=== PATIENT | male | born 1970 | race Caucasian/White ===

== ENCOUNTER 2017-01-29 00:47 | Emergency (ER) | payer OTHER ==
[2017-01-29] MEDS ORDERED: Tetan/Diph/Pertus SYR(Tdap)* 0.5 ML SYR(BOOSTRIX) use SYR IM ONE (02:25)
[2017-01-29] MEDS ORDERED: oxyCODONE/Acetamin 5/325 MG* TAB PO ONE (04:22)
[2017-01-29 04:39] VITALS: BP 138/92
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
== END 2017-01-29 04:39 | disposition home or self-care (01) ==
LOC: ED 00:47
DX: S05.11XA Contusion of eyeball and orbital tissues, right eye, initial encounter (principal); Y09 Assault by unspecified means; Y93.9 Activity, unspecified; Y92.9 Unspecified place or not applicable
CPT/HCPCS: 70450; 70486; 90471; 90715; 99282; A9270-GY

== ENCOUNTER 2018-08-13 15:06 | Observation (INO) | payer OTHER ==
[2018-08-13] MEDS ORDERED: NS 0.9% 1000 ML** 1,000 ML IV ONE (17:50)
--- NOTE | 2018-08-13 17:58 | ED ---
Influenza-Like Illness - HPI Summary HPI Summary: The patient is a 48 y/o M presenting to [facility] with a chief complaint of elevated flu-like symptoms due to positive dx of flu, but he also has eleavted D -dimer as provided by Mary Park NP at the [facility] who told him to come to the ED. he is currently complaining of fever, headache, chest congestion, and cough that causes chest tenderness. He denies CP and SOB. Hx of HTN, DM, and HLD. No surgeries. Former smoker (quit in 2013), occasional EtOH, no substances. No long trips recently. - History of Current Complaint Chief Complaint: EDGeneral Time Seen by Provider: 08/13/18 17:23 Hx Obtained From: Patient Onset/Duration: Lasting Hours, Still Present Severity: Moderate Associated Signs & Symptoms: Fever, Cough, Headache Related Hx: Possible Flu/Infectious Exposure - positive flu test per PCP today - Allergy/Home Medications Allergies/Adverse Reactions: Allergies Allergy/AdvReac Type Severity Reaction Status Date / Time No Known Allergies Allergy Verified 01/29/17 00:54 Home Medications: Home Medications Allopurinol 100 mg PO DAILY 08/13/18 [History Confirmed 08/13/18] Atorvastatin* [Lipitor*] 80 mg PO DAILY 08/13/18 [History Confirmed 08/13/18] Cyclobenzaprine TAB* [Flexeril 10 MG TAB*] 10 mg PO BEDTIME PRN 08/13/18 [ History Confirmed 08/13/18] Lisinopril 40 mg PO DAILY 08/13/18 [History Confirmed 08/13/18] Loratadine 10 mg PO BEDTIME 08/13/18 [History Confirmed 08/13/18] Metoprolol Succinate XL TAB* [Toprol XL TAB*] 75 mg PO DAILY 08/13/18 [History Confirmed 08/13/18] Multivitamin [Once Daily] 1 each PO DAILY 08/13/18 [History Confirmed 08/13/18] Omeprazole 20 mg PO DAILY 08/13/18 [History Confirmed 08/13/18] Potassium Citrate [Urocit-K] 1 tab PO DAILY 08/13/18 [History Confirmed 08/13/18 ] amLODIPine TAB* [Norvasc 5 mg TAB*] 10 mg PO DAILY 08/13/18 [History Confirmed 08/13/18] glipiZIDE [Glipizide] 5 mg PO BID 08/13/18 [History Confirmed 08/13/18] metFORMIN* [Glucophage 850 MG TAB *] 850 mg PO 0800,1700 08/13/18 [History Confirmed 08/13/18] PMH/Surg Hx/FS Hx/Imm Hx Endocrine/Hematology History: Reports: Hx Diabetes Cardiovascular History: Reports: Hx Hypercholesterolemia, Hx Hypertension Sensory History: Denies: Hx Deafness Opthamlomology History: Reports: Hx Contacts or Glasses Denies: Hx Legally Blind EENT History: Denies: Hx Deafness - Surgical History Surgery Procedure, Year, and Place: none Infectious Disease History: No Infectious Disease History: Denies: Traveled Outside the [place] in Last 30 Days - Family History Known Family History: Positive: Hypertension, Diabetes - Social History Alcohol Use: Occasionally Substance Use Type: Reports: None Hx Tobacco Use: Yes Smoking Status (MU): Former Smoker Type: Cigarettes - quit in Review of Systems Positive: Fever Positive: Other - chest congestion. Negative: Chest Pain Positive: Cough. Negative: Shortness Of Breath Positive: Headache All Other Systems Reviewed And Are Negative: Yes Physical Exam - Summary Physical Exam Summary: VITAL SIGNS: Reviewed. Tachycardic. GENERAL: Patient is a well-developed and nourished male who is lying comfortable in the stretcher. Patient is not in any acute respiratory distress. HEAD AND FACE: No signs of trauma. No ecchymosis, hematomas or skull depressions. No sinus tenderness. EYES: PERRLA, EOMI x 2, No injected conjunctiva, no nystagmus. EARS: Hearing grossly intact. Ear canals and tympanic membranes are within normal limits. MOUTH: Oropharynx within normal limits. NECK: Supple, trachea is midline, no adenopathy, no JVD, no carotid bruit, no c- spine tenderness, neck with full ROM. CHEST: Symmetric, no tenderness at palpation LUNGS: Clear to auscultation bilaterally. No wheezing or crackles. CVS: Tachycardia with regular rhythm, S1 and S2 present, no murmurs or gallops appreciated. ABDOMEN: Soft, non-tender. No signs of distention. No rebound no guarding, and no masses palpated. Bowel sounds are normal. EXTREMITIES: FROM in all major joints, no edema, no cyanosis or clubbing. NEURO: Alert and oriented x 3. No acute neurological deficits. Speech is normal and follows commands. SKIN: Dry and warm Triage Information Reviewed: Yes Vital Signs On Initial Exam: Initial Vitals Temp Pulse Resp BP Pulse Ox 99.2 F 115 18 127/83 94 08/13/18 15:33 08/13/18 15:33 08/13/18 15:33 08/13/18 15:33 08/13/18 15:33 Vital Signs Reviewed: Yes Diagnostics - Vital Signs Vital Signs Temp Pulse Resp BP Pulse Ox 08/13/18 17:20 111 29 124/61 98 08/13/18 17:16 115 96 08/13/18 15:33 99.2 F 115 18 127/83 94 - Laboratory Result Diagrams: 08/13/18 18:14 08/13/18 18:14 Lab Statement: Any lab studies that have been ordered have been reviewed, and results considered in the medical decision making process. - Radiology CXR Radiology Interpretation Completed By: Radiologist Summary of Radiographic Findings: No acute process. ED physician has reviewed this report. - CT Chest/Thorax CTA CT Interpretation Completed By: Radiologist Summary of CT Findings: 1. There is minimal bibasilar atelectatic change or scarring. The lungs and pleural spaces are otherwise clear. 2. There is mild wall thickening in the distal esophagus, cannot exclude mild esophagitis. 3. No aortic dissection. 4. No obvious acute pulmonary embolism but there is very suboptimal IV contrast opacification of the pulmonary arteries and therefore emboli could be missed. ED physician has reviewed this report. - EKG 18:35 Cardiac Rate: Tachycardia - 109 BPM EKG Rhythm: Sinus Tachycardia EKG Comparison: Other - No prior EKG. Summary of EKG Findings: No ST elevations. Re-Evaluation - Re-Evaluation First Eval Re-Evaluation Time: 21:00 Change: Unchanged Comment: I discussed with the patient the lab and imaging results. Given findings, we talked about admission. He agrees with this plan. Flu Symptom Course/Dx - Course Assessment/Plan: This patient is a 40-year-old male who presents to the emergency department with chief complaint of having shortness of breath, influenza and an elevated d-dimer which is normal per the primary care physician. Therefore they recommended to rule out pulmonary embolism. Patient has no history of recent traveling or sedentary life. In the ED the patient is febrile, tachycardic, and dehydrated. Test results without any significant abnormality except for glucose of 101, lactic acid of 2.4, increased LFTs, CRP of 52.4. In the ED course, patient was given about 2 L of fluids, Tylenol for the fever, however the patient is tachycardic. I believe that the patient is taking more fluids. Chest x-ray shows no acute pathology. CTA IMPRESSION: 1. There is minimal bibasilar atelectatic change or scarring. The lungs and pleural spaces are otherwise clear. 2. There is mild wall thickening in the distal esophagus, cannot exclude mild esophagitis. 3. No aortic dissection. 4. No obvious acute pulmonary embolism but there is very suboptimal IV contrast opacification of the pulmonary arteries and therefore emboli could be missed. The patient continues to be slightly tachycardic. Therefore, I discuss my physical exam, findings and test results with Dr. Jiang from the hospitalist services and he agrees to admit patient to his services. Patient is hemodynamically stable alert and oriented x 3. - Diagnoses Differential Diagnosis/HQI/PQRI: Positive: Bronchitis, Broncholiolitis, Influenza, Pneumonia, Upper Respiratory Infection Provider Diagnoses: Influenza A, Tachycardia, Dehydration - Physician Notifications Discussed Care Of Patient With: Celia Jiang - hospitalist Time Discussed With Above Provider: 21:15 Instructed by Provider To: Other - I consulted with Dr. Jiang, who accepts the patient for admission given results. Discharge - Sign-Out/Discharge Documenting (check all that apply): Patient Departure - Patient will be admitted to [facility] for further care. Patient Received Moderate/Deep Sedation with Procedure: No - Discharge Plan Condition: Stable Disposition: ADMITTED TO [facility] Referrals: Mary Park [Primary Care Provider] - - Billing Disposition and Condition Condition: STABLE Disposition: Admitted to [facility] - Attestation Statements Document Initiated by Scribe: Yes Documenting Scribe: Claudia Mitchell Provider For Whom Adonay is Documenting (Include Credential): Dr. Braden Pringle MD Scribe Attestation: Claudia Gandhi, scribed for Dr. Braden Pringle MD on 08/13/18 at 2116. Scribe Documentation Reviewed: Yes Provider Attestation: The documentation as recorded by the Claudia shrestha accurately reflects the service I personally performed and the decisions made by me, Dr. Braden Pringle MD Status of Scribe Document: Ready
[2018-08-13] MEDS ORDERED: Acetaminophen TAB* 325 MG PO ONE (18:41)
[2018-08-13 18:47] LABS: ABS Basophils 0 10^3/ul (0-0.2); ABS Eosinophils 0.1 10^3/ul (0-0.6); ABS Lymphocytes 0.4 10^3/ul (1.0-4.8); ABS Monocytes 0.7 10^3/ul (0-0.8); ABS Neutrophils 5.5 10^3/ul (1.5-7.7); ABS Nucleated RBC 0 10^3/ul; Albumin 4.8 g/dL (3.2-5.2); Albumin/Globulin Ratio 1.6 (1-3); BUN/Creatinine Ratio 10.9 (8-20); C Reactive Protein 52.49 mg/L (<8.01); Calcium 9.4 mg/dL (8.6-10.3); EGFR African American 106.2 (>60); EGFR Non-African American 87.8 (>60); Eosinophil % 0.9 %; Hematocrit 42 % (36-46); Hemoglobin 14.2 g/dL (14.0-18.0); Lymphocyte % 5.3 %; Mean Corpuscular HGB Conc 34 g/dL (31-36); Mean Corpuscular Hemoglobin 29 pg (27-31); Mean Corpuscular Volume 85 fL (80-94); Mean Platelet Volume 8.2 fL (7.4-10.4); Nucleated Red Blood Cells % 0.1; Platelet Count 137 10^3/uL (150-450); Potassium 4.1 mmol/L (3.5-5.0); Red Blood Count 4.98 10^6 /uL (4.18-5.48); Red Cell Distribution Width 14 % (10.5-15); Total Bilirubin 0.5 mg/dL (0.2-1.0); Total Protein 7.8 g/dL (6.4-8.9); White Blood Count 6.7 10^3/uL (3.5-10.8)
[2018-08-13] MEDS ORDERED: Iodixanol* (CONTRAST) 320 MG/ML 100 ML SDV IV ONE (19:09)
[2018-08-13] MEDS ORDERED: Albuterol 2.5 MG/3 ML NEB.SOL* (0.083%) INH PRN (21:16)
[2018-08-13] MEDS ORDERED: Al Hydrox/Mg Hydrox/Simet LIQ* 30 ML UDC PO PRN (21:16)
[2018-08-13] MEDS ORDERED: Enoxaparin(*) 40 MG/0.4 ML SYR SUBCUT SCH (22:00)
[2018-08-13] MEDS: NS 0.9% 1000 ML** 1,000 ML IV SCH (23:16)
[2018-08-13] MEDS ORDERED: Ibuprofen TAB* 600 MG PO PRN (23:39)
[2018-08-13] MEDS ORDERED: Cyclobenzaprine TAB* 10 MG PO PRN (23:39)
[2018-08-13] MEDS ORDERED: Melatonin 3 MG TAB PO SCH (23:45)
[2018-08-14 00:25] LABS: Influenza A Molecular POSITIVE (Negative)
[2018-08-14] MEDS: Acetaminophen TAB* 325 MG PO PRN ×2 (03:49→11:35)
--- NOTE | 2018-08-14 05:09 | HP ---
HISTORY AND PHYSICAL: DATE OF ADMISSION: 08/13/18 PRIMARY CARE PHYSICIAN: Mary Park at [facility]. CHIEF COMPLAINT: Positive D-dimer. HISTORY OF PRESENT ILLNESS: This is a 48-year-old man with history of hypertension and diabetes, who presented to the emergency department after his primary care physician sent him in for a positive D-dimer. Mr. Giles went to her office for flu-like symptoms and was flu positive; however, he was also experiencing some chest discomfort. So, she ordered a D-dimer, which was positive and she instructed him to come to the emergency department. His symptoms include muscle aches, fevers, cough with phlegm, some nausea, and dizziness. They started at 3 p.m. yesterday. He was flu positive in her office today and he has taken 2 doses of Tamiflu so far. He continues to feel ill. In the emergency department, his D- dimer was confirmed to be positive and a CTA did not show any PE; however, it is noted that there was "very suboptimal" IV contrast opacification of the pulmonary arteries and therefore emboli could be missed. Mr. Giles has no history of PE or DVT. He has no recent immobility and he does not know of his family history. PAST MEDICAL HISTORY: Hypertension, hyperlipidemia, type 2 diabetes. PAST SURGICAL HISTORY: [place] teeth removal. HOME MEDICATIONS: 1. Allopurinol 100 mg daily. 2. Amlodipine 10 mg daily. 3. Atorvastatin 80 mg daily. 4. Cyclobenzaprine 10 mg q.h.s. 5. Glipizide 5 mg b.i.d. 6. Ibuprofen 600 q.8 p.r.n. 7. Lisinopril 40 mg daily. 8. Loratadine 10 mg q.h.s. 9. Metformin 850 mg b.i.d. 10. Metoprolol succinate 75 mg daily. 11. Omeprazole 20 mg daily. 12. Potassium citrate. FAMILY HISTORY: Unknown as he was adopted. 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 He does not smoke or use drugs. He occasionally uses alcohol. REVIEW OF SYSTEMS: Positive for headache, congestion, cough, phlegm, nausea, poor appetite, fevers, and negative for palpitation, diarrhea, lymphadenopathy. PHYSICAL EXAMINATION GENERAL: Alert, well-appearing young man in no distress. His is at the bedside. VITAL SIGNS: Temperature 99.4, his initial temperature was 102.1, heart rate 107, respiratory rate 24, pulse ox 94% on room air, blood pressure 136/73. HEENT: Pupils 4 mm and reactive to light equally. Oral mucosa is dry. His pharynx is difficult to visualize, but there is no noticeable erythema or exudate. NECK: No JVP. No adenopathy. CHEST: He is tachycardic with no murmurs. His lungs are clear bilaterally. ABDOMEN: Obese, soft, nontender, nondistended. His liver and spleen are not palpable. No CVA tenderness. EXTREMITIES: No edema, rashes, or ulcers. NEUROLOGIC: Strength 5/5 throughout. DIAGNOSTIC STUDIES/LAB DATA: White blood cell 6.7, hemoglobin 14.2, platelets 137. D-dimer 330. Sodium 138, potassium 4.1, chloride 102, bicarb 26, BUN 10, creatinine 0.92, glucose 101, lactic acid initially 2.4, then 1.4. CRP 52.5. AST 71, ALT 60. Chest and thorax CTA: Minimal bibasilar atelectasis changes, scarring. The lungs and pleural spaces are otherwise clear. There is mild wall thickening in the distal esophagus, cannot exclude mild esophagitis. No aortic dissection and no obvious acute PE, but there is very suboptimal IV contrast opacification of the pulmonary arteries and therefore emboli could be missed. EKG: Sinus tachycardia, normal axis, normal interval. No chamber hypertrophy. T wave flattening at III and aVF. ASSESSMENT AND PLAN: This is a 48-year-old male with history of hypertension and diabetes, who presents to the emergency department after a positive D-dimer was found at his primary care physician's office and he is found not to have pulmonary embolism on CTA; however, it was a poor study. 1. Sepsis. He has a fever, tachycardia, and tachypnea and I suspect this is related to influenza. I am rechecking a flu swab and continuing him on Tamiflu. He already took 2 doses today, so I will resume the medication tomorrow. He has no other localizing symptoms and his symptoms are very consistent with influenza, so I will not use antibiotics at this time. He is receiving IV fluid and needs further volume resuscitation. 2. Concern for a pulmonary embolism. The emergency department asked us to consider admission because they were concerned that he may indeed still have a pulmonary embolism; however, I have a low suspicion for a pulmonary embolism. He has no risk factors for pulmonary embolism and his Wells' score is 1.5, this puts him at a low risk category. 3. Elevated AST and ALT. I suspect this is related to sepsis. We will continue volume resuscitation and recheck them in the morning. 4. Thrombocytopenia. Again, this is most likely related to sepsis and we will recheck it in the morning. He has no evidence of bleeding. 5. DVT prophylaxis: Lovenox subcu. 6. Diet: Unrestricted. 7. History of hypertension. I am continuing his home antihypertensive as his blood pressure has been stable since he has been here, but we can see how his blood pressure does overnight and they may need to be held in the morning. 8. History of diabetes. I am continuing his home diabetic medication. 9. Disposition: Admit to observation with likely discharge home tomorrow. [id number]/[facility] #: [id number] WILLIAM
[2018-08-14 06:55] LABS: ABS Basophils 0 10^3/ul (0-0.2); ABS Eosinophils 0 10^3/ul (0-0.6); ABS Lymphocytes 0.8 10^3/ul (1.0-4.8); ABS Monocytes 0.7 10^3/ul (0-0.8); ABS Neutrophils 3.2 10^3/ul (1.5-7.7); ABS Nucleated RBC 0 10^3/ul; Eosinophil % 0.8 %; Hematocrit 39 % (36-46); Hemoglobin 13.2 g/dL (14.0-18.0); Lymphocyte % 16.3 %; Mean Corpuscular HGB Conc 34 g/dL (31-36); Mean Corpuscular Hemoglobin 29 pg (27-31); Mean Corpuscular Volume 85 fL (80-94); Mean Platelet Volume 7.9 fL (7.4-10.4); Nucleated Red Blood Cells % 0; Platelet Count 125 10^3/uL (150-450); Red Blood Count 4.62 10^6 /uL (4.18-5.48); Red Cell Distribution Width 14 % (10.5-15); White Blood Count 4.8 10^3/uL (3.5-10.8)
[2018-08-14 07:13] LABS: Albumin 4.2 g/dL (3.2-5.2); Albumin/Globulin Ratio 1.5 (1-3); BUN/Creatinine Ratio 8.8 (8-20); Calcium 8.6 mg/dL (8.6-10.3); EGFR African American 124.8 (>60); EGFR Non-African American 103.2 (>60); Globulin 2.8 g/dL (2-4); Indirect Bilirubin 0.4 mg/dL (0.3-1.0); Potassium 3.6 mmol/L (3.5-5.0); Total Bilirubin 0.5 mg/dL (0.2-1.0)
[2018-08-14] MEDS: NS 0.9% 1000 ML** 1,000 ML IV SCH (07:20)
[2018-08-14] MEDS ORDERED: metFORMIN* 850 MG TAB PO SCH (08:00)
[2018-08-14] MEDS ORDERED: glipiZIDE TAB* 5 MG PO SCH (09:00)
[2018-08-14] MEDS ORDERED: Allopurinol TAB* 100 MG PO SCH (09:00)
[2018-08-14] MEDS ORDERED: Oseltamivir CAP* 75 MG CAP PO SCH (09:00)
[2018-08-14] MEDS ORDERED: POTASSIUM CITRATE 10 MEQ PO SCH (09:00)
[2018-08-14] MEDS ORDERED: Atorvastatin* 80 MG TAB PO SCH (09:00)
[2018-08-14] MEDS ORDERED: Prenatal Vitamin TAB PO SCH (09:00)
[2018-08-14] MEDS ORDERED: Pantoprazole TAB * 40 MG TAB PO SCH (09:00)
[2018-08-14] MEDS ORDERED: Lisinopril TAB* 10 MG PO SCH (09:00)
[2018-08-14] MEDS ORDERED: Metoprolol Succinate XL TAB* 50 MG PO SCH (09:00)
[2018-08-14] MEDS ORDERED: amLODIPine TAB* 5 MG PO SCH (09:00)
[2018-08-14 11:28] VITALS: BP 131/80
--- NOTE | 2018-08-14 20:51 | DS ---
CC: Mary Park NP * DISCHARGE SUMMARY: DATE OF ADMISSION: 08/13/18 DATE OF DISCHARGE: 08/14/18 PRIMARY CARE PROVIDER: Mary Park NP, at the [facility] ATTENDING PHYSICIAN: Dr. Whelan * (dictated by Arcadio Hendricks NP). PRIMARY DIAGNOSES: 1. Influenza A. 2. Sepsis. 3. Elevated D-dimer. 4. Elevated AST and ALT. 5. Thrombocytopenia. SECONDARY DIAGNOSES: 1. Hypertension. 2. Hyperlipidemia. 3. Type 2 diabetes. CONSULTATIONS WHILE IN THE HOSPITAL: No consultations. PROCEDURES WHILE IN THE HOSPITAL: No procedures. STUDIES WHILE IN THE HOSPITAL: 1. Chest x-ray: Impression: No acute cardiopulmonary process. 2. EKG: Impression: Sinus tachycardia. 3. Chest/thorax CTA: Impression: There are minimal bibasilar atelectatic changes or scarring. The lungs and pleural spaces are otherwise clear. There is mild wall thickening of the distal esophagus, cannot exclude mild esophagitis. No aortic dissection. No obvious acute pulmonary embolism, but there is very suboptimal IV contrast opacification of the pulmonary arteries and therefore emboli could be missed. DISCHARGE HOME MEDICATIONS: New home medications: 1. Tamiflu 75 mg p.o. b.i.d. x5 days total. Continued home medications: 1. Multivitamin 1 tab p.o. daily. 2. Toprol-XL 75 mg p.o. daily. 3. Loratadine 10 mg p.o. at bedtime. 4. Flexeril 10 mg p.o. at bedtime p.r.n. 5. Omeprazole 20 mg p.o. daily. 6. Ibuprofen 600 mg p.o. q.8 hours p.r.n., MDD 3. 7. Lipitor 80 mg p.o. daily. 8. Allopurinol 100 mg p.o. daily. 9. Glipizide 5 mg p.o. b.i.d. 10. Amlodipine 10 mg p.o. daily. 11. Potassium citrate 1 tab p.o. daily. 12. Lisinopril 40 mg p.o. daily. 13. Metformin 850 mg p.o. at 8 a.m. and 1700. Discontinued home medications: No home medications discontinued. Changed home medications: No home medications changed. HISTORY OF PRESENT ILLNESS/HOSPITAL COURSE: Mr. Giles is a 48-year-old male with a past history of hypertension and diabetes, who presented to the emergency room on 08/13/18 after being sent to the emergency department by his primary care physician. Please see history and physical dictated by Ceila Jiang DO, for complete summary of events leading up to hospitalization, but in short, on 08/13/18, the patient presented to his primary care office due to flu-like symptoms and some chest discomfort. His primary care provider ordered a D-dimer and later noted that it was positive; therefore, instructed him to come to the emergency department. When he presented to the emergency department , he did have flu-like symptoms including muscle aches, fever, cough, nausea, dizziness. He was not experiencing any shortness of breath. Given the D-dimer elevation, a CTA was completed and given "very suboptimal" IV contrast opacification of the pulmonary arteries, the patient was admitted for further evaluation and treatment. During this hospital stay, the patient remained on the medical floor. The patient was receiving IV fluid hydration and Tamiflu. It should be noted that he initially met sepsis criteria on admission due to fever, tachycardia, tachypnea, which was suspected to secondary to influenza. This has since resolved. The patient has been free from chest pain and shortness of breath during this admission. The patient feels ready for discharge. The patient is stable for discharge home. REVIEW OF SYSTEMS: The patient reports occasional productive cough. The patient denies shortness of breath, chest pain, palpitations, dizziness, muscle aches, weakness, fever, chills, nausea, vomiting, diarrhea. A 12-point review of systems was completed and all others were negative. PHYSICAL EXAMINATION: Vital Signs: Temp 100.1, HR 89, RR 20, O2 saturation 95 % on room air, BP 131/80. General: Mr. Giles is a 48-year-old male, who is sitting in bed, appears to be in no acute distress, appears stated age. HEENT: EOMs intact. PERRLA. Oral mucosa is moist without lesions. Posterior pharynx is clear. Neck: Supple. No lymphadenopathy. Cardiac: S1, S2 present. Regular rate and rhythm. No murmurs, rubs, or gallops. Respiratory: Lung sounds are clear. Good aeration. No wheezes, rhonchi, or rales. Abdomen: Soft, nontender. Bowel sounds x4. Extremities: No pain or deformities. No edema. No clubbing or cyanosis. Skin: Intact. Neuro: Neuro exam is grossly intact. No focal deficits or weakness. LABORATORY DATA: WBC 4.8, hemoglobin 13.2, hematocrit 39, platelets 125. D- dimer 330. Sodium 138, potassium 3.6, chloride 104, carbon dioxide 27, BUN 7, creatinine 0.80, glucose 144. AST 54, ALT 52, alk phos 58, total bilirubin 0.50 , direct bilirubin 0.10, indirect bilirubin 0.4. DISCHARGE PLAN/FOLLOWUP: 1. Influenza A: The patient reported he was positive for flu at his primary care provider's office; therefore, this was repeated during his admission. The patient's results revealed flu A positive. The patient has been on Tamiflu during his hospitalization. The patient should continue this to complete a 5- day course. The patient states understanding of this. In addition, I have educated the patient on the importance of hydration, deep breathing, coughing, ambulation. I have also educated the patient on signs and symptoms of new or worsening condition including improvement and then sudden return of symptoms, chest pain, shortness of breath, dizziness, and any other new or worsening symptoms. I have instructed the patient to return to the emergency department if any of these occur and the patient states understanding. 2. Sepsis: The patient did meet sepsis criteria on his admission due to fever , tachycardia, tachypnea, elevated liver enzymes, and suspected source. The patient received fluid boluses. It was not suspected that his sepsis was bacterial in nature, but it was suspected to be related to influenza. The patient had no leukocytosis. This has resolved as the patient is no longer tachycardic, febrile, tachypneic, and AST and ALT have improved. 3. Concern for pulmonary embolism: The patient was admitted to the hospital due to the emergency department's concern for pulmonary embolism; however, there is a low suspicion for pulmonary embolism even though there was "very suboptimal" IV contrast opacification of pulmonary arteries. As the patient has no risk factors for pulmonary embolism and his WELS score is 1.5, thus this puts him at a low risk category. He is also oxygenating well on room air, he is not tachycardic, he no longer has chest pain, he has no shortness of breath with exertion. If the patient's symptoms do return, I have encouraged him to return to the emergency department. 4. Elevated AST and ALT: As mentioned above, the patient did have elevated AST and ALT on admission of 71 and 60 respectively. We suspect this is secondary to the patient's viral infection; therefore, he was provided with fluid resuscitation and labs were rechecked this morning. This morning, his AST and ALT have improved at 54 and 52 respectively. 5. Thrombocytopenia: The patient was noted to be thrombocytopenic on admission with a platelet count of 137. There is no laboratory value to compare this to as the patient has never had labs at our facility. We suspect this is secondary to the patient's infectious process. I would encourage the patient's primary care to recheck a platelet level in a few weeks and compare these to previous values drawn. There is no acute concern as the patient has no active signs of bleeding or easy bruising. 6. Hypertension: The patient can continue his home hypertension medications as same. The patient's blood pressure has been stable during his hospital stay. 7. Diabetes: The patient should continue his home medications as same. The patient has been instructed on checking his fingersticks occasionally and when symptomatic due to current infectious process. 8. Followup: I have encouraged the patient to follow up with his primary care next week to have labs redrawn and to assess for improvement. 9. Education: I have educated the patient and his on signs and symptoms of new or worsening condition and when to return to the emergency department. Both stated understanding. I have also discussed prophylaxis with the patient' s , who states understanding. This is a summarized report of a complex medical history and hospital stay. For further details, please see entire medical record. Plan: This plan was also discussed with my attending, Dr. Whelan, who agrees with my plan. TIME SPENT: Approximately 35 minutes were spent on this discharge, greater than half that time was spent [id number] with the patient discussing discharge plan and instructions. [place], [place] [id number]/[facility] #: [id number] WILLIAM
[2018-08-14] MEDS ORDERED: Cetirizine* 10 MG TAB PO SCH (21:00)
== END 2018-08-14 15:00 | disposition home or self-care (01) ==
LOC: ED 15:06 → MED 21:16
PROVIDERS: ADMIT Internal Medicine; ATTEND Internal Medicine
DX: A41.9 Sepsis, unspecified organism (principal); J11.1 Influenza due to unidentified influenza virus with other respiratory manifestations; R79.1 Abnormal coagulation profile; R50.9 Fever, unspecified; D69.6 Thrombocytopenia, unspecified; I10 Essential (primary) hypertension; R05 Cough; E78.5 Hyperlipidemia, unspecified; R51 Headache; R09.89 Other specified symptoms and signs involving the circulatory and respiratory systems; E11.9 Type 2 diabetes mellitus without complications; R74.0 Nonspecific elevation of levels of transaminase and lactic acid dehydrogenase [LDH]; Z87.891 Personal history of nicotine dependence
CPT/HCPCS: 36415; 71046; 71275; 80048; 80053; 80076; 83605; 85025; 85379; 86140; 87040; 93005; 96360; 96361; 96372; 99284; A9270-GY; G0378; J1650; Q9967

== ENCOUNTER 2020-03-02 06:14 | Observation (INO) ==
[2020-03-02 07:19] LABS: ABS Eosinophils 0.2 10^3/ul (0-0.6); ABS Lymphocytes 1.7 10^3/ul (1.0-4.8); ABS Monocytes 0.5 10^3/ul (0-0.8); ABS Neutrophils 4.3 10^3/ul (1.5-7.7); Eosinophil % 2.5 %; Hematocrit 39 % (42-52); Hemoglobin 13.8 g/dL (14.0-18.0); Lymphocyte % 25.2 %; Mean Corpuscular HGB Conc 36 g/dL (31-36); Mean Corpuscular Hemoglobin 31 pg (27-31); Mean Corpuscular Volume 86 fL (80-94); Mean Platelet Volume 8.1 fL (7.4-10.4); Platelet Count 165 10^3/uL (150-450); Red Cell Distribution Width 14 % (10-15); White Blood Count 6.7 10^3/uL (3.5-10.8)
[2020-03-02 07:37] LABS: Albumin 4.3 g/dL (3.2-5.2); Albumin/Globulin Ratio 1.6 (1-3); BUN/Creatinine Ratio 12.4 (8-20); EGFR African American 109.9 (>60); EGFR Non-African American 90.9 (>60); Globulin 2.7 g/dL (2-4); Magnesium 1.5 mg/dL (1.9-2.7); Potassium 3.4 mmol/L (3.5-5.0); Total Bilirubin 0.6 mg/dL (0.2-1.0)
[2020-03-02 07:38] LABS: Troponin I 0.01 ng/mL (<0.03)
[2020-03-02] MEDS ORDERED: Magnesium Sulfate 2 gm BAG 2 GM/50 ML BAG IVPB ONE (07:45)
[2020-03-02] MEDS ORDERED: Potassium Chlor 20 meq TAB.ER PO ONE (07:45)
[2020-03-02] MEDS ORDERED: Lactated Ringers 1000 ml BAG 1,000 ML IV ONE (08:15)
[2020-03-02 08:24] LABS: T4, Total 10.93 mcg/dL (6.09-12.23)
[2020-03-02 08:27] LABS: TSH Ultra Thyroid Stim Horm 2.36 mcIU/mL (0.34-5.60)
[2020-03-02] MEDS ORDERED: Senna TAB 8.6 mg TAB PO PRN (10:14)
[2020-03-02] MEDS ORDERED: Ondansetron 4 mg VIAL 2 MG/ML 2 ml VIAL IV PRN (10:14)
[2020-03-02 11:16] VITALS: BP 127/70
[2020-03-02] MEDS ORDERED: Dextrose 50% Syringe 50 ml 25 GM/50 ML SYRINGE IV PUSH PRN (11:26)
[2020-03-02] MEDS ORDERED: NS 0.9% 1000 ml BAG 1,000 ML IV SCH (11:30)
[2020-03-02] MEDS ORDERED: Albuterol HFA INHALER 8 gm MDI INH PRN (12:00)
[2020-03-02] MEDS ORDERED: Regadenoson 0.4 MG/5 ML SYRINGE ONE (12:53)
[2020-03-02] MEDS ORDERED: Aminophylline 25 MG/ML VIAL ONE (12:54)
[2020-03-02] MEDS ORDERED: Perflutren Lipid Microsphere 3 ML VIAL ONE (13:47)
[2020-03-02] MEDS ORDERED: Mometasone/Formoter 200/5 MDI INH SCH (21:00)
[2020-03-02] MEDS ORDERED: Enoxaparin 40 MG/0.4 ML SYR SUBCUT SCH (21:00)
[2020-03-03] MEDS ORDERED: Vitamin THERAPEUTIC TAB PO SCH (09:00)
[2020-03-03] MEDS ORDERED: Cholecalciferol (VIT D3) 1,000 unit TAB PO SCH (09:00)
== END 2020-03-02 15:25 | disposition home or self-care (01) ==
LOC: MEDTELE 06:14 → ED 06:14 → MEDTELE 10:58
PROVIDERS: ADMIT Internal Medicine; ATTEND Internal Medicine

== ENCOUNTER 2024-03-14 09:59 | Observation (INO) ==
[~2024-03-14 09:59] MED LIST: NS 0.45% 1000 ml BAG 1,000 ML IV SCH; Naloxone 0.4 mg VIAL 0.4 mg/ml 1 ml VIAL IV PRN; Ondansetron 4 mg VIAL 2 MG/ML 2 ml VIAL IV PRN; fentaNYL 100 mcg/2 ml 50 MCG/ML VIAL IV PRN
[2024-03-14] MEDS ORDERED: Chlorhexidine MOUTHWASH 0.12% 15 ML UDC ONE ×2 (10:51→11:25)
[2024-03-14] MEDS ORDERED: fentaNYL 100 mcg/2 ml 50 MCG/ML VIAL ONE (11:03)
[2024-03-14] MEDS ORDERED: Midazolam 2 mg/2 ml VIAL 1 mg/ml 2 ml VIAL (2 mg) ONE (11:04)
[2024-03-14] MEDS ORDERED: Lidocaine 2% PF 5 ML VIAL ONE (11:05)
[2024-03-14] MEDS ORDERED: Propofol 10 MG/ML 20 ML BTL ONE (11:05)
[2024-03-14] MEDS ORDERED: ceFAZolin 2 GM PREMIX 2 GM/50 ML BAG ONE (11:31)
[2024-03-14] MEDS: Lactated Ringers 1000 ml BAG 1,000 ML IV SCH ×2 (11:50→17:07)
[2024-03-14] MEDS: Buffered Lidocaine 1% SYRIN 1 ml INTRADERM ONE (11:50)
[2024-03-14 11:57] LABS: Rapid COVID-19 Molecular Undetected (Undetected)
[2024-03-14] MEDS ORDERED: Lidocaine 1% w EPI 1:100,000 MDV 20 ML VIAL ONE (12:14)
[2024-03-14] MEDS ORDERED: Thrombin 5,000 UNITS(BOVINE) for Ultrasound Guided Pseudoaneursym ONE (12:14)
[2024-03-14] MEDS ORDERED: ceFAZolin VIAL VIAL ONE (12:14)
[2024-03-14] MEDS ORDERED: HYDROmorphone 0.5 MG/0.5 ML SYRINGE ONE (12:58)
[2024-03-14] MEDS ORDERED: Rocuronium 50 mg VIAL 10 mg/ml 5 ml VIAL (50 mg) ONE (13:46)
[2024-03-14] MEDS ORDERED: Phenol 1.4% Throat Spray BTL MT PRN (14:18)
[2024-03-14] MEDS ORDERED: Senna TAB 8.6 mg TAB PO PRN (14:18)
[2024-03-14] MEDS ORDERED: Ondansetron 4 mg VIAL 2 MG/ML 2 ml VIAL IV PRN (14:18)
[2024-03-14] MEDS ORDERED: Magnesium Hydroxide LIQ 30 ML UDC PO PRN (14:18)
[2024-03-14] MEDS ORDERED: Calcium Carb (TUMS) 500 mg CHEW TAB PO PRN (14:18)
[2024-03-14] MEDS ORDERED: Morphine 2 MG/ML SYRINGE IV PRN (14:18)
[2024-03-14] MEDS ORDERED: Dextran 70/Hypromellose Tears Eye Drops 15 ml BTL (for Artificials Tears) BOTH EYES PRN (14:18)
[2024-03-14] MEDS ORDERED: Benzocaine/Menthol LOZ MT PRN (14:18)
[2024-03-14] MEDS ORDERED: Albuterol HFA INHALER 8 gm MDI INH PRN (14:21)
[2024-03-14] MEDS: Acetaminophen IV 1 GM/100ML 1,000 MG/100 ML BAG IV ONE (17:10)
[2024-03-14] MEDS: Insulin GLARGINE 100 un/ml 10 ml VIAL SUBCUT SCH (21:08)
[2024-03-15 09:38] VITALS: BP 132/81
== END 2024-03-15 11:21 | disposition home or self-care (01) ==
LOC: OR 09:59 → SSU 09:59
PROVIDERS: ADMIT Neurological Surgery; ATTEND Neurological Surgery